=== PATIENT | female | born 2000 | race Caucasian/White ===

== ENCOUNTER 2025-01-08 17:12 | Emergency (ER) | payer SELFPAY ==
[2025-01-08 17:27] VITALS: BP 137/91; PULSE 81; RESP 17; TEMP 36.7; O2SAT 98; BMI 39.9
[2025-01-08 17:27] LABS: Microscopic, Urine URINE MICROSCOPIC (MICROSCOPIC)
[2025-01-08 17:42] LABS: Appearance,Urine CLEAR (Clear); Bilirubin,Urine Negative (Negative); Blood, Urine Negative (Negative); Color,Urine YELLOW (Yellow); Glucose,Urine (UA) Negative (Negative); Ketones,Urine TRACE (Negative); Leukocyte Esterase,Urine Negative (Negative); Nitrate,Urine Negative (Negative); Protein,Urine 2+ (Negative); Urobilinogen,Urine 0.2 EU/dl (0.2)
[2025-01-08 17:44] LABS: Specific Gravity, Urine >= 1.030 (1.005-1.030)
[2025-01-08 17:58] LABS: Bacteria,Urine 2+ /lpf
[2025-01-08 18:00] LABS: Hyaline Casts,Urine Occasional #/lpf (0)
[2025-01-08 18:01] LABS: Basophils % 0.4 % (0.1-2.0); Eosinophils # 0.2 K/mm3 (0.0-0.4); Eosinophils % 1.8 % (0.1-12.0); Hematocrit 43.6 % (37.0-47.0); Hemoglobin 14.4 g/dL (12.2-16.2); Lymphocytes # 2.4 K/mm3 (0.7-4.5); Lymphocytes % 22.4 % (10-50); Mean Corpuscular Volume 84.7 fl (81-99); Mean Platelet Volume 10.7 fl (7.4-10.4); Monocytes # 0.6 K/mm3 (0.1-1.0); Monocytes % 5.9 % (1.7-9.3); Neutrophils # 7.4 K/mm3 (1.8-7.8); Neutrophils % 69.1 % (37.0-80.0); Nucleated Red Blood Cells # 0 10^3/uL; Nucleated Red Blood Cells % 0 %; Platelet Count 261 K/mm3 (142-424); Red Blood Count 5.15 M/mm3 (4.20-5.40); Red Cell Distribution Width-SD 39.9 fL; White Blood Count 10.7 K/mm3 (4.8-10.8)
[2025-01-08 18:07] LABS: Albumin Level 4.5 g/dl (3.5-5.0); Chloride 104 mmol/L (98-107); Sodium 138 mmol/L (136-145)
[2025-01-08 18:09] LABS: Blood Urea Nitrogen 8 mg/dl (7-17); Creatinine Clearance Estimated 209 mL/min (50-200); Estimated Glomerular Filt Rate 125 ml/min (>60); GFR (African American) 151 ML/MIN (>60)
[2025-01-08 18:10] LABS: Alanine Aminotransferase 12 U/L (12-78); Albumin/Globulin Ratio 1.3 (1.1-1.8); Alkaline Phosphatase 92 U/L (38-126); Aspartate Amino Transferase 23 U/L (14-36); Bilirubin,Total 0.6 mg/dl (0.2-1.3); Calcium 9.8 mg/dl (8.4-10.2); Carbon Dioxide 23 mmol/L (22.0-30.0); Globulin 3.5 g/dL (1.3-3.2); Glucose 88 mg/dl (74-100)
[2025-01-08 18:12] LABS: Urine Pregnancy, HCG Qual. Positive (Negative)
--- NOTE | 2025-01-08 18:31 | ED_ITS ---
Discharge Plan Disposition Patient Disposition: Home, Self-Care Condition: Good Prescriptions Prescriptions: New ondansetron 4 mg tablet,disintegrating 4 mg PO Q8H PRN (Reason: nausea and vomiting) 3 Days Qty: 9 0RF Referrals Follow up/Referrals: Arielle Conley DO [Staff Physician] - See instructions Provider,Referral, [Primary Care Provider] - See instructions Activity Restrictions/Add. Instructions Additional Instructions/Restrictions: You were seen for early (9 weeks 6 days). Please start your vitamin. Call for a follow up with the OB. Clinical Impressions Clinical Impression: Nausea and vomiting during Instructions Patient Instructions: Nausea of (Alternative Therapy) Print Language Print Language: Bengali Discharge ED Provider: Blaise Ritchie General Adult HPI <TREVIN Lewis - Last Filed: 01/08/25 21:05> General Chief complaint: Nausea/Vomiting/Diarrhea Stated complaint: N/V,Stomach & bladder pain Time Seen by Provider: 01/08/25 17:17 Mode of Arrival: Ambulatory Source of Information: Patient Description of Symptoms (Recalled from ER Triage Doc. by RN): pt to the ED with multiple complaints. pt reports intermitten nausea and vomiting over the last month as well as fever, body aches and burning when urinating for the last week. pt reports her LMP was about 2 months ago but she hasnt confirmed . History of Present Illness HPI narrative: Patient presents complaining of nausea and vomiting for 2 months. She reports her last menstrual period was 2 months ago as well. She has had 1 positive test followed by a negative test and has not repeated since that time. She reports that she had some urinary symptoms a few days ago resolved with Azo. She reports axillary temperature of 99.5 recently as well. complaint: Vomiting Onset (ago): month(s) Severity: moderate Quality: burning Consistency: intermittent Relieving factors: other (Azo) Exacerbating factors: none Associated symptoms: fever/chills Related Data Previous Rx's ?Medication ?Instructions ?Recorded ondansetron 4 mg disintegrating 4 mg PO Q8H PRN nausea and 01/08/25 tablet vomiting 3 days #9 tabs Allergies Allergy/AdvReac Type Severity Reaction Status Date / Time ceftriaxone (From Rocephin) Allergy Rash Verified 01/08/25 17:37 morphine Allergy Unknown Verified 01/08/25 17:37 allergy reaction Penicillins Allergy Rash Verified 01/08/25 17:37 [facility] <TREVIN Lewis - Last Filed: 01/08/25 21:05> [facility] Disclaimer: The information contained in this section may have been updated after the patient was seen, as this information can be updated by other users. Social History (Updated 01/08/25 @ 21:05 by TREVIN Lewis) Smoking Status: Never smoker alcohol intake: never current occupational status: unemployed Travel in the last 8 weeks: None Have you lived/traveled outside US in past 30 days?: No Contact w/someone who lives/traveled outside US past 30 days?: No Exposure to someone with infectious disease in past 14 days?: No Do you have a fever (greater than 100.4 F or 38 C)?: No Have you tested positive for COVID-19: No Exposed to someone with COVID-19 in past 14 days?: No Do you have a sore throat?: No Do you have a cough?: No Do you have any weakness?: No Do you have any diarrhea?: Yes Are you experiencing any unusual bleeding?: No Do you have any muscle aches/pain?: Yes Do you have any abdominal pain?: Yes Are you experiencing loss of taste or smell?: No <TREVIN Lewis - Last Filed: 01/08/25 21:05> ROS Obtained: Yes Systems reviewed as appropriate & no additional complaints except as documented Physical Exam <TREVIN Lewis - Last Filed: 01/08/25 21:05> General General appearance: alert and in no apparent distress Head Head exam: atraumatic and normocephalic Eye Eye exam: Present normal appearance and EOMI Chest Chest inspection: Present symmetric chest wall rise Respiratory Respiratory exam: Present normal lung sounds bilaterally; Absent wheezes or stridor Cardiovascular Cardiovascular exam: Present regular rate and normal rhythm; Absent systolic murmur Abdominal Exam Abdominal exam: Present soft; Absent distention, tenderness or guarding Extremities Exam Extremities exam: Present full ROM Neurological Exam Neurological exam: Present alert and oriented X3 Psychiatric Psychiatric exam: Present normal affect and normal mood Skin Skin exam: Present warm, dry and intact Medical Decision Making <TREVIN Lewis - Last Filed: 01/08/25 21:05> Medical Records Screening: Per USPSTF and CDC recommendations, given the prevalence of disease in our region, it is our hospital?s policy to screen for HIV and viral Hepatitis for all patients aged 18 and over and those with ongoing risk factors. Mckay Inquiry Pt receiving controlled substance: No Vital Signs: 01/08/25 17:27 01/08/25 21:03 Temperature 98.1 F 98.1 F Temperature Source Oral Oral Pulse Rate 85 Pulse Rate [Left Radial] 81 Respiratory Rate 17 18 Blood Pressure 125/83 Blood Pressure [Right Arm] 137/91 H Blood Pressure Mean [Right Arm] 106 Blood Pressure Source Automatic Cuff Blood Pressure Source [Right Arm] Automatic Cuff Blood Pressure Position [Right Arm] Sitting 02 Sat by Pulse Oximetry 98 Oxygen Delivery Method Room Air Room Air Lab Data Lab Results 01/08/25 17:18: HCG, Quant [id number] H, Urine Color Yellow, Urine Appearance Clear, Urine pH 6.0, Ur Specific [place] >= 1.030, Urine Protein 2+ A, Urine Glucose (UA) Negative, Urine Ketones Trace, Urine Blood Negative, Urine Nitrate Negative, Urine Bilirubin Negative, Urine Urobilinogen 0.2, Ur Leukocyte Esterase Negative, Urine RBC None, Urine WBC 3-5, Ur Squamous Epith Cells 10-20, Urine Bacteria 2+, Hyaline Casts Occasional, Urine HCG, Qual Positive 01/08/25 17:52: WBC 10.7, RBC 5.15, Hgb 14.4, Hct 43.6, MCV 84.7, MCH 28.0, MCHC 33.0, RDW 13.0, Plt Count 261, MPV 10.7 H, Neut % (Auto) 69.1, Lymph % (Auto) 22.4, [place] % (Auto) 5.9, Eos % (Auto) 1.8, Baso % (Auto) 0.4, Neut # (Auto) 7.4, Lymph # (Auto) 2.4, [place] # (Auto) 0.6, Eos # (Auto) 0.2, Baso # (Auto) 0.0, Sodium 138, Potassium 4.0, Chloride 104, Carbon Dioxide 23, Anion Gap 15.0, BUN 8, Creatinine 0.60, Estimated Creat Clear 209, Estimated GFR 125, Est GFR ( Amer) 151, Glucose 88, Calcium 9.8, Total Bilirubin 0.6, AST 23, ALT 12, Alkaline Phosphatase 92, Total Protein 8.0, Albumin 4.5, Globulin 3.5 H, Albumin/Globulin Ratio 1.3, HCV Ab VENKAT w/Rflx PCR Qn Negative, HIV Ag/Ab Combo Qual Negative 01/08/25 17:52 01/08/25 17:52 Orders (Tests/Meds): ORDERS Category Date Time Status POCUS Point of Care (ER Only) Stat Exams 01/08/25 17:59 Taken US transvaginal Stat Exams 01/08/25 19:09 Completed CBC [Complete Blood Count Auto Diff] Stat Lab 01/08/25 17:52 Completed CMP [Comprehensive Metabolic Panel] Stat Lab 01/08/25 17:52 Completed HCG,Quantitative Stat Lab 01/08/25 17:18 Completed HIV Combo Stat Lab 01/08/25 17:52 Completed Hepatitis C Ab Qual. W/ RFX Stat Lab 01/08/25 17:52 Completed UA [Urinalysis and Microscopic] Stat Lab 01/08/25 17:18 Completed Urine , HCG Qual. Stat Lab 01/08/25 17:18 Completed Urine Culture Stat Micro 01/08/25 17:18 Received Medical Decision Narrative: In summary patient is a 24-year-old who presents the emergency department for evaluation of vomiting, amenorrhea. Patient is hemodynamically upon arrival, afebrile. Unremarkable physical exam. Differential diagnosis includes , UTI, viral illness. Initial workup will be conducted with hematologic labs, test, urinalysis. Initial workup reviewed by nv IUMalcolm confirmed on ultrasound, 9 weeks 6 days. She has some bacteria in her urine however also has epithelial cells, pending culture for further evaluation. Upon repeat evaluation patient had acceptable resolution of send. Given this patient is appropriate for discharge home with prescription for Zofran and follow-up with OB.. <Blaise Ritchie MD - Last Filed: 01/08/25 22:15> Vital Signs: 01/08/25 17:27 01/08/25 21:03 Temperature 98.1 F 98.1 F Temperature Source Oral Oral Pulse Rate 85 Pulse Rate [Left Radial] 81 Respiratory Rate 17 18 Blood Pressure 125/83 Blood Pressure [Right Arm] 137/91 H Blood Pressure Mean [Right Arm] 106 Blood Pressure Source Automatic Cuff Blood Pressure Source [Right Arm] Automatic Cuff Blood Pressure Position [Right Arm] Sitting 02 Sat by Pulse Oximetry 98 Oxygen Delivery Method Room Air Room Air Lab Data Lab Results 01/08/25 17:18: HCG, Quant [id number] H, Urine Color Yellow, Urine Appearance Clear, Urine pH 6.0, Ur Specific [place] >= 1.030, Urine Protein 2+ A, Urine Glucose (UA) Negative, Urine Ketones Trace, Urine Blood Negative, Urine Nitrate Negative, Urine Bilirubin Negative, Urine Urobilinogen 0.2, Ur Leukocyte Esterase Negative, Urine RBC None, Urine WBC 3-5, Ur Squamous Epith Cells 10-20, Urine Bacteria 2+, Hyaline Casts Occasional, Urine HCG, Qual Positive 01/08/25 17:52: WBC 10.7, RBC 5.15, Hgb 14.4, Hct 43.6, MCV 84.7, MCH 28.0, MCHC 33.0, RDW 13.0, Plt Count 261, MPV 10.7 H, Neut % (Auto) 69.1, Lymph % (Auto) 22.4, [place] % (Auto) 5.9, Eos % (Auto) 1.8, Baso % (Auto) 0.4, Neut # (Auto) 7.4, Lymph # (Auto) 2.4, [place] # (Auto) 0.6, Eos # (Auto) 0.2, Baso # (Auto) 0.0, Sodium 138, Potassium 4.0, Chloride 104, Carbon Dioxide 23, Anion Gap 15.0, BUN 8, Creatinine 0.60, Estimated Creat Clear 209, Estimated GFR 125, Est GFR ( Amer) 151, Glucose 88, Calcium 9.8, Total Bilirubin 0.6, AST 23, ALT 12, Alkaline Phosphatase 92, Total Protein 8.0, Albumin 4.5, Globulin 3.5 H, Albumin/Globulin Ratio 1.3, HCV Ab VENKAT w/Rflx PCR Qn Negative, HIV Ag/Ab Combo Qual Negative Orders (Tests/Meds): ORDERS Category Date Time Status POCUS Point of Care (ER Only) Stat Exams 01/08/25 17:59 Taken US transvaginal Stat Exams 01/08/25 19:09 Completed CBC [Complete Blood Count Auto Diff] Stat Lab 01/08/25 17:52 Completed CMP [Comprehensive Metabolic Panel] Stat Lab 01/08/25 17:52 Completed HCG,Quantitative Stat Lab 01/08/25 17:18 Completed HIV Combo Stat Lab 01/08/25 17:52 Completed Hepatitis C Ab Qual. W/ RFX Stat Lab 01/08/25 17:52 Completed UA [Urinalysis and Microscopic] Stat Lab 01/08/25 17:18 Completed Urine , HCG Qual. Stat Lab 01/08/25 17:18 Completed Urine Culture Stat Micro 01/08/25 17:18 Received Medical Decision Narrative: In summary patient is a 24-year-old who presents the emergency department for evaluation of vomiting, amenorrhea. Patient is hemodynamically upon arrival, afebrile. Unremarkable physical exam. Differential diagnosis includes , UTI, viral illness. Initial workup will be conducted with hematologic labs, test, urinalysis. Initial workup reviewed by me IUP confirmed on ultrasound, 9 weeks 6 days. She has some bacteria in her urine however also has epithelial cells, pending culture for further evaluation. Upon repeat evaluation patient had acceptable resolution of send. Given this patient is appropriate for discharge home with prescription for Zofran and follow-up with OB.. I was consulted by the ANCELMO, and we discussed the complexity of the problems being addressed. I approved the treatment and management plan for this patient's care in the Emergency Department, thus performing a substantive portion of the medical decision making. Blaise Ritchie MD Procedures <Blaise Ritchie MD - Last Filed: 01/08/25 22:15> Limited Ultrasound Indication:: Limited OB ultrasound Indication: Positive test Identified structures: -Uterus -Left adnexa -Right adnexa -Pouch of Gaurav Findings: Uterus: No definitive IUP Right adnexa: -Normal Left adnexa: -Normal [place] sac: -free fluid absent Impression: -IUP: No definitive IUP -Ectopic : Absent -Free fluid: Absent Images were saved to permanent archive The study was technically adequate CPT Transabdominal: 82159-52 This study was performed by me, and I personally interpreted all images/videos. Based on my clinical judgement, these images were adequate, but did necessitate further imaging Critical Care <TREVIN Lewis - Last Filed: 01/08/25 21:05> Critical Care Time Critical Care Time: No
[2025-01-08 19:05] LABS: HCG,Quantitative 130660 mIU/ml (0-5.42)
--- NOTE | 2025-01-08 19:09 | US_ITS ---
PROCEDURE INFORMATION: Exam: US , Transvaginal and US Duplex Artery and Vein, Ovaries, Complete Exam date and time: 01/08/2025 7:15 PM Age: 24 years old Clinical indication: Lmp or gestational age (in weeks): 9 weeks 6 days; Other: Nausea and voimting; ; Additional info: confirm iup LABS AND CLINICAL REPORTS: Last menstrual period start date: 10/26/2024 TECHNIQUE: Imaging protocol: Real-time transvaginal obstetrical ultrasound of the maternal pelvis and a first trimester with image documentation. Transvaginal imaging was used for better evaluation of the fetus, adnexa, and/or cervix. Real-time duplex ultrasound scan of the arterial and venous flow of the ovaries with B-mode, color Doppler flow and spectral waveform analysis, Complete Duplex. Duplex exam was performed to evaluate for torsion and other vascular conditions. COMPARISON: No relevant prior studies available. FINDINGS: GESTATION: Gestation: Yolk sac measures 6.2 mm. heart rate: 165 bpm Extra-embryonic membranes/Placenta: Not evaluated due to early gestation. Amniotic fluid: Not evaluated due to early gestation. BIOMETRY: Gestational age (AUA): 9 w 6 d Estimated due date (AUA): 08/07/2025 [place] rump length (CRL): 29.59 mm. EGA (CRL) is 9 w 6 d Estimated due date (AUA): 08/07/2025 MATERNAL: Right ovary/adnexa: RIGHT ovary measures 2.1 mL. Left ovary/adnexa: LEFT ovary measures 3.0 mL. Doppler: Doppler examination of the ovaries with pulsed wave and color images was performed which demonstrate arterial/venous waveforms within normal limits. Intraperitoneal space: No free fluid in the pelvis. IMPRESSION: Single LIVE intrauterine gestation. Normal ovaries demonstrating blood flow on Doppler.
--- NOTE | 2025-01-08 19:27 | PC.NURSE ---
rounded on pt at this time. pt voices no needs at this time.
[2025-01-08 19:40] LABS: HIV Combo NEGATIVE (Negative)
[2025-01-08 19:48] LABS: Hepatitis C Ab Qual. W/ RFX NEGATIVE (Negative)
[2025-01-08 21:03] VITALS: BP 125/83; PULSE 85; RESP 18; TEMP 36.7; O2SAT 99
== END 2025-01-08 21:04 | disposition home or self-care (01) ==
PROVIDERS: Physician Assistant; Emergency Provider Emergency Medicine
DX: O21.9 Vomiting of pregnancy, unspecified (principal); R50.9 Fever, unspecified; R30.0 Dysuria; Z3A.09 9 weeks gestation of pregnancy; Z11.59 Encounter for screening for other viral diseases; Z11.4 Encounter for screening for human immunodeficiency virus [HIV]
CPT/HCPCS: 99284; 76830; 80053; 81001; 81025; 84702; 85025; 86803; 87086; 87389

== ENCOUNTER 2025-01-26 19:56 | Emergency (ER) | payer MEDICAID, SELFPAY ==
[2025-01-26 20:00] VITALS: BP 133/91; PULSE 96; RESP 18; TEMP 37.1; O2SAT 98; BMI 41.0
--- NOTE | 2025-01-26 20:07 | HMH.EDGENADL ---
Discharge Plan Disposition Patient Disposition: Home, Self-Care Condition: Good Prescriptions Prescriptions: New ondansetron 4 mg tablet,disintegrating 4 mg PO Q6H PRN (Reason: nausea and vomiting) Qty: 12 0RF No Action ondansetron 4 mg tablet,disintegrating 4 mg PO Q8H PRN (Reason: nausea and vomiting) 3 Days Qty: 9 0RF Referrals Follow up/Referrals: Provider,Referral, MD [Primary Care Provider] - See instructions Activity Restrictions/Add. Instructions Additional Instructions/Restrictions: Stay well-hydrated. Return if fevers or worsening pain. Please follow up with your primary care provider in 2-3 days. Please return to ED if your symptoms worsen, change in location, change in severity, new symptoms develop or if you become concerned for your health. Clinical Impressions Clinical Impression: Nausea and vomiting during Instructions Patient Instructions: DI for Diarrhea and Traveler's Diarrhea -- Adult, DI for Diarrhea and Traveler's Diarrhea -- Child, DI for Nausea -- Adult, DI for Nausea -- Child Print Language Print Language: Ukrainian Discharge ED Provider: Jelani Stone Adult [facility] General Chief complaint: Nausea/Vomiting/Diarrhea Stated complaint: 13 weeks ,vomiting,dizziness Time Seen by Provider: 01/26/25 20:07 Mode of Arrival: Ambulatory Source of Information: Patient Description of Symptoms (Recalled from ER Triage Doc. by RN): Patient presents today 13 weeks with weakness, right side kidney pain, nausea, and vomiting x 24 hours. Patient reports history of kidney stones. First . Related Data Previous Rx's ?Medication ?Instructions ?Recorded ondansetron 4 mg disintegrating 4 mg PO Q8H PRN nausea and 01/08/25 tablet vomiting 3 days #9 tabs ondansetron 4 mg disintegrating 4 mg PO Q6H PRN nausea and 01/26/25 tablet vomiting #12 tabs Allergies Allergy/AdvReac Type Severity Reaction Status Date / Time ceftriaxone (From Rocephin) Allergy Rash Verified 01/08/25 17:37 morphine Allergy Unknown Verified 01/08/25 17:37 allergy reaction Penicillins Allergy Rash Verified 01/08/25 17:37 PFS PFS Disclaimer: The information contained in this section may have been updated after the patient was seen, as this information can be updated by other users. Social History (Updated 04/13/25 @ 21:05 by TREVIN Lewis) Smoking Status: Never smoker alcohol intake: never current occupational status: unemployed Travel in the last 8 weeks?: None Have you lived/traveled outside US in past 30 days?: No Contact w/someone who lives/traveled outside US past 30 days?: No Exposure to someone with infectious disease in past 14 days?: No Do you have a fever (greater than 100.4 F or 38 C)?: No Have you tested positive for COVID-19?: No Exposed to someone with COVID-19 in past 14 days?: No Do you have a sore throat?: No Do you have a cough?: No Do you have any weakness?: No Do you have any diarrhea?: No Are you experiencing any unusual bleeding?: No Do you have any muscle aches/pain?: No Do you have any abdominal pain?: No Are you experiencing loss of taste or smell?: No ROS Obtained: Yes All systems reviewed & no additional complaints except as documented Physical Exam General General appearance: alert and in no apparent distress Respiratory Respiratory exam: Present normal lung sounds bilaterally; Absent respiratory distress Cardiovascular Cardiovascular exam: Present regular rate and normal rhythm Abdominal Exam Abdominal exam: Present soft and tenderness (mild suprapubic and llq and l flank); Absent distention Neurological Exam Neurological exam: Present alert and oriented X3 Medical Decision Making Medical Records Screening: Per USPSTF and CDC recommendations, given the prevalence of disease in our region, it is our hospital?s policy to screen for HIV and viral Hepatitis for all patients aged 18 and over and those with ongoing risk factors. Mckay Inquiry Pt receiving controlled substance: No Vital Signs: 01/26/25 20:00 01/26/25 21:31 01/26/25 22:11 Temperature 98.7 F 97.9 F Temperature Source Tympanic Temporal Artery Scan Pulse Rate 89 95 H Pulse Rate [Right] 96 H Respiratory Rate 18 18 Blood Pressure 135/79 151/98 H Blood Pressure [Right Arm] 133/91 H Blood Pressure Mean [Right Arm] 105 Blood Pressure Source [Right Arm] Automatic Cuff Blood Pressure Position [Right Arm] Sitting 02 Sat by Pulse Oximetry 98 100 Oxygen Delivery Method Room Air Room Air Lab Data Lab Results 01/26/25 20:15: WBC 14.5 H, RBC 5.01, Hgb 14.3, Hct 42.8, MCV 85.4, MCH 28.5, MCHC 33.4, RDW 13.4, Plt Count 268, MPV 10.3, Neut % (Auto) 75.5, Lymph % (Auto) 17.3, [place] % (Auto) 4.1, Eos % (Auto) 2.5, Baso % (Auto) 0.3, Neut # (Auto) 11.0 H, Lymph # (Auto) 2.5, [place] # (Auto) 0.6, Eos # (Auto) 0.4, Baso # (Auto) 0.1, Sodium 137, Potassium 4.0, Chloride 106, Carbon Dioxide 24, Anion Gap 11.0, BUN 5 L, Creatinine 0.60, Estimated Creat Clear 214, Estimated GFR 125, Est GFR ( Amer) 151, Glucose 92, Calcium 10.0, Magnesium 1.6, Total Bilirubin 0.3, AST 21, ALT 11 L, Alkaline Phosphatase 82, Total Protein 7.3, Albumin 4.4, Globulin 2.9, Albumin/Globulin Ratio 1.5, Lipase 68, HCG, Quant [id number] H, Urine Color Yellow, Urine Appearance Cloudy, Urine pH 6.5, Ur Specific [place] 1.025, Urine Protein Negative, Urine Glucose (UA) Negative, Urine Ketones Trace, Urine Blood Negative, Urine Nitrate Negative, Urine Bilirubin Negative, Urine Urobilinogen 0.2, Ur Leukocyte Esterase Negative, Urine RBC 3-5, Urine WBC 5-10, Ur Squamous Epith Cells 10-20, Amorphous Sediment 3+ 01/26/25 20:15 01/26/25 20:15 Orders (Tests/Meds): ED MEDICATIONS Discontinued Medications Generic Name Dose Route Start Last Admin Trade Name Carlosq PRN Reason Stop Dose Admin Lactated Ringer's 1,000 mls @ 999 mls/hr 01/26/25 20:19 01/26/25 20:25 Lactated Ringer's 1000 Ml Bag IV 01/26/25 21:19 999 mls/hr .Q1H1M ONE Administration Ondansetron HCl 4 mg 01/26/25 20:19 01/26/25 20:25 Ondansetron 4mg/2ml Vial IV 01/26/25 20:20 4 mg ONCE ONE Administration ORDERS Category Date Time Status POCUS Point of Care (ER Only) Stat Exams 01/26/25 20:19 Taken CBC w/Auto Diff [Complete Blood Count Auto Diff] Stat Lab 01/26/25 20:15 Completed CMP [Comprehensive Metabolic Panel] Stat Lab 01/26/25 20:15 Completed HCG,Quantitative Stat Lab 01/26/25 20:15 Completed Lipase Stat Lab 01/26/25 20:15 Completed MAG [Magnesium] Stat Lab 01/26/25 20:15 Completed Urinalysis and Microscopic Stat Lab 01/26/25 20:15 Completed Urine Culture Stat Micro 01/26/25 20:15 Received Medical Decision Narrative: Patient is a 24-year-old female with history of anxiety, depression. She is a G1 that is currently 13 weeks by last menstrual period. She has not had an ultrasound dating yet per her. She presents today due to concerns for nausea, vomiting, slight shortness of breath as well as right flank pain. She reports that the shortness of breath is only on exertion and has been present for some time. The nausea and vomiting has been throughout the , but got worse yesterday. She has not been able to keep anything down. She reports she ran out of her Zofran several weeks ago. She denies any dysuria or hematuria but does have some right flank pain. Endorses subjective fevers without objective ones. Denies any diarrhea, significant abdominal pain anteriorly. No history of blood clots and no lower extremity edema. She has had no vaginal bleeding. No vaginal discharge. In summary, this 24-year-old female presents to the emergency department today with vomiting. On initial evaluation patient is afebrile, hemodynamically stable and in no acute distress. On exam, appears somewhat dry, with 2-second capillary refill, abdomen soft nontender nondistended some right flank tenderness. She does have a history of kidney stones, will screen with [id number] ultrasound of the right renal and urinalysis. Also obtain basic hematologic labs to rule out significant electrolyte derangement or INES.. Differential diagnosis includes but is not limited to gastritis, gastroenteritis, hyperemesis gravidarum, electrolyte disturbance, INES, ectopic , renal stone. Patient received Zofran, fluid bolus for treatment. Labs personally reviewed demonstrate mild leukocytosis, favored to be reactive from the vomiting. No significant electrolyte derangement, hCG 78,000. No evidence of UTI. No asymptomatic bacteriuria.. On reassessment patient reports improvement in her symptoms. She has returned to her baseline. She is tolerating good oral intake in the emergency department and reports complete resolution in her symptoms. She will be given Zofran outpatient for hyperemesis gravidarum and strict return precautions. IUP with good heart rate visualized on my bedside ultrasound.. I also looked at her right kidney given that she was having some right flank pain that is now resolved after Tylenol here, I did not appreciate any hydronephrosis. This in conjunction with no blood in her urinalysis makes kidney stone unlikely. 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 Of note, social determinants of health include poor health literacy. At this time it was felt that the patient was safe to be discharged home. The patient was in agreement with this plan. The patient was given strict return precautions prior to being discharged from the emergency department. Limited OB ultrasound Indication: -Pelvic or abdominal pain Identified structures: Uterus Findings: IUP with FHR 164 Uterus: [Definitive IUP FHR: 164 Impression: -IUP: Present Images [were saved to permanent archive The study [was technically adequate CPT Transabdominal: 39894-08 This study was performed by me, and I personally interpreted all images/videos. Based on my clinical judgement, these images were [adequate/inadequate and did/did not necessitate further imaging. Critical Care Critical Care Time Critical Care Time: No
[2025-01-26 20:22] LABS: Microscopic, Urine URINE MICROSCOPIC (MICROSCOPIC)
[2025-01-26 20:24] LABS: Basophils # 0.1 K/mm3 (0-0.2); Basophils % 0.3 % (0.1-2.0); Bilirubin,Urine Negative (Negative); Blood, Urine Negative (Negative); Color,Urine YELLOW (Yellow); Eosinophils # 0.4 Kmm3 (0.0-0.4); Eosinophils % 2.5 % (0.1-12.0); Glucose,Urine (UA) Negative (Negative); Hematocrit 42.8 % (37.0-47.0); Hemoglobin 14.3 g/dL (12.2-16.2); Ketones,Urine TRACE (Negative); Leukocyte Esterase,Urine Negative (Negative); Lymphocytes # 2.5 K/mm3 (0.7-4.5); Lymphocytes % 17.3 % (10-50); Mean Corpuscular HGB Conc 33.4 g/dL (31.8-35.4); Mean Corpuscular Hemoglobin 28.5 pg (27.0-31.2); Mean Corpuscular Volume 85.4 fl (81-99); Mean Platelet Volume 10.3 fl (7.4-10.4); Monocytes # 0.6 K/mm3 (0.1-1.0); Monocytes % 4.1 % (1.7-9.3); Neutrophils % 75.5 % (37.0-80.0); Nitrate,Urine Negative (Negative); Nucleated Red Blood Cells # 0 10^3/uL; Nucleated Red Blood Cells % 0 %; PH,Urine 6.5 (5.0-8.5); Platelet Count 268 K/mm3 (142-424); Protein,Urine Negative (Negative); Red Blood Count 5.01 M/mm3 (4.20-5.40); Red Cell Distribution Width 13.4 % (11.5-17.5); Red Cell Distribution Width-SD 41.3 fL; Specific Gravity, Urine 1.025 (1.005-1.030); Urobilinogen,Urine 0.2 EU/dl (0.2); White Blood Count 14.5 K/mm3 (4.8-10.8)
[2025-01-26] MEDS: LACTATED RINGERS 1000ML 1,000 ML 999 ML IV (20:25)
[2025-01-26] MEDS: ONDANSETRON 4MG/2ML VIAL 4 MG IV (20:25)
[2025-01-26 20:31] LABS: Appearance,Urine Cloudy (Clear)
[2025-01-26 20:33] LABS: Albumin Level 4.4 g/dl (3.5-5.0); Chloride 106 mmol/L (98-107); Sodium 137 mmol/L (136-145)
[2025-01-26 20:36] LABS: Alanine Aminotransferase 11 U/L (12-78); Albumin/Globulin Ratio 1.5 (1.1-1.8); Alkaline Phosphatase 82 U/L (38-126); Aspartate Amino Transferase 21 U/L (14-36); Bilirubin,Total 0.3 mg/dl (0.2-1.3); Blood Urea Nitrogen 5 mg/dl (7-17); Carbon Dioxide 24 mmol/L (22.0-30.0); Creatinine Clearance Estimated 214 mL/min (50-200); Estimated Glomerular Filt Rate 125 ml/min (>60); GFR (African American) 151 ML/MIN (>60); Globulin 2.9 g/dL (1.3-3.2); Glucose 92 mg/dl (74-100); Lipase 68 U/L (23-300); Total Protein,Serum 7.3 g/dl (6.3-8.2)
[2025-01-26 20:37] LABS: Magnesium 1.6 mg/dl (1.6-2.3)
[2025-01-26 20:40] LABS: Amorphous Sediment,Urine 3+ /lpf
[2025-01-26 21:31] VITALS: BP 135/79; PULSE 89; O2SAT 100
[2025-01-26 21:41] LABS: HCG,Quantitative 78731 mIU/ml (0-5.42)
[2025-01-26 22:11] VITALS: BP 151/98; PULSE 95; RESP 18; TEMP 36.6; O2SAT 95
== END 2025-01-26 22:18 | disposition home or self-care (01) ==
PROVIDERS: Emergency Provider Emergency Medicine
DX: O21.9 Vomiting of pregnancy, unspecified (principal); R10.817 Generalized abdominal tenderness; R53.1 Weakness; Z3A.13 13 weeks gestation of pregnancy
CPT/HCPCS: 80053; 81001; 83690; 83735; 84702; 85025; 87086; 96361; 96374; 99284; J2405; J7120

== ENCOUNTER 2025-02-10 18:21 | Emergency (ER) | payer MEDICAID, SELFPAY ==
[2025-02-10 18:37] VITALS: BP 122/83; PULSE 121; RESP 18; TEMP 36.6; O2SAT 97; BMI 41.3
--- NOTE | 2025-02-10 18:59 | HMH.EDGENADL ---
Discharge Plan Disposition Patient Disposition: Home, Self-Care Condition: Good Prescriptions Prescriptions: New ondansetron 4 mg tablet,disintegrating 4 mg PO Q8H PRN (Reason: nausea and vomiting) 4 Days Qty: 12 0RF nitrofurantoin monohyd/m-cryst [Macrobid] 100 mg capsule 100 mg PO BID 5 Days Qty: 10 0RF Rx Instructions: must administer with a meal/food No Action ondansetron 4 mg tablet,disintegrating 4 mg PO Q8H PRN (Reason: nausea and vomiting) 3 Days Qty: 9 0RF ondansetron 4 mg tablet,disintegrating 4 mg PO Q6H PRN (Reason: nausea and vomiting) Qty: 12 0RF Referrals Follow up/Referrals: Provider,Referral, MD [Primary Care Provider] - See instructions Activity Restrictions/Add. Instructions Additional Instructions/Restrictions: You were evaluated in the emergency department today. 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 Follow-up closely with your primary care provider as well as with your OB. Make sure you stay hydrated. You may take Tylenol every 4-6 hours as needed for pain as well. Return to the emergency department for new or worsening symptoms Clinical Impressions Clinical Impression: Urinary tract infection during Stand Alone Forms Stand Alone Forms: Work/School Release Instructions Patient Instructions: DI for Urinary Tract Infection (UTI), DI for -- Discomforts and Remedies, DI for Abdominal Pain -- Early Print Language Print Language: Guamanian Discharge ED Provider: Sana Kiran General Adult HPI <TREVIN Albrecht - Last Filed: 02/10/25 22:09> General Chief complaint: Abdominal Pain Stated complaint: 14-15 weeks ,vomiting,dizziness Time Seen by Provider: 02/10/25 18:37 Mode of Arrival: Ambulatory Source of Information: Patient Description of Symptoms (Recalled from ER Triage Doc. by RN): Patient reports that she is approx 14-15 weeks and began to have cramping, vomiting, and dizziness. States her OBGYN at [facility] gave her Famotidine for her nausea and that it is not helping. States she has asked her OBGYN multiple times for Zofran and that they are not listening to her. History of Present Illness HPI narrative: 24-year-old G1, female at approximately 14 to 15 weeks gestation presents to the emergency department for abdominal cramping that is localized to the lower abdomen that is started today, nausea and vomiting and generalized weakness, patient has had documented IUP 1 month ago, had uncomplicated thus far except for hyperemesis gravidarum for which she was seen and treated for multiple times in the emergency department. Patient denies any other real relevant past medical history except for prior appendectomy, takes no other medications at home, denies any fever chills chest pain shortness of breath, denies any constipation diarrhea no urinary toxin otology, no vaginal discharge no vaginal bleeding, triage vitals noted for tachycardia, however patient states that she is quite anxious . Onset (ago): hour(s) Related Data Previous Rx's ?Medication ?Instructions ?Recorded ondansetron 4 mg disintegrating 4 mg PO Q8H PRN nausea and 01/08/25 tablet vomiting 3 days #9 tabs ondansetron 4 mg disintegrating 4 mg PO Q6H PRN nausea and 01/26/25 tablet vomiting #12 tabs nitrofurantoin 100 mg PO BID 5 days #10 caps 02/10/25 monohydrate/macrocrystals 100 mg capsule (Macrobid) ondansetron 4 mg disintegrating 4 mg PO Q8H PRN nausea and 02/10/25 tablet vomiting 4 days #12 tabs Allergies Allergy/AdvReac Type Severity Reaction Status Date / Time ceftriaxone (From Rocephin) Allergy Rash Verified 01/08/25 17:37 morphine Allergy Unknown Verified 01/08/25 17:37 allergy reaction Penicillins Allergy Rash Verified 01/08/25 17:37 [facility] <TREVIN Albrecht - Last Filed: 02/10/25 22:09> [facility] Disclaimer: The information contained in this section may have been updated after the patient was seen, as this information can be updated by other users. Social History (Updated 01/08/25 @ 21:05 by TREVIN Lewis) Smoking Status: Never smoker alcohol intake: never current occupational status: unemployed Travel in the last 8 weeks?: None Have you lived/traveled outside [place] in past 30 days?: No Contact w/someone who lives/traveled outside US past 30 days?: No Exposure to someone with infectious disease in past 14 days?: No Do you have a fever (greater than 100.4 F or 38 C)?: No Have you tested positive for COVID-19?: No Exposed to someone with COVID-19 in past 14 days?: No Do you have a sore throat?: No Do you have a cough?: No Do you have any weakness?: No Do you have any diarrhea?: No Are you experiencing any unusual bleeding?: No Do you have any muscle aches/pain?: No Do you have any abdominal pain?: No Are you experiencing loss of taste or smell?: No <TREVIN Albrecht - Last Filed: 02/10/25 22:09> ROS Obtained: Yes All systems reviewed & no additional complaints except as documented Physical Exam <TREVIN Albrecht - Last Filed: 02/10/25 22:09> General General appearance: alert and in no apparent distress Head Head exam: atraumatic and normocephalic Eye Eye exam: Present PERRL and EOMI ENT ENT exam: Present mucous membranes moist Neck Neck exam: Present normal inspection Chest Chest inspection: Present normal inspection and symmetric chest wall rise Respiratory Respiratory exam: Present normal lung sounds bilaterally; Absent respiratory distress Cardiovascular Cardiovascular exam: Present regular rate and normal rhythm Abdominal Exam Abdominal exam: Present soft; Absent tenderness, guarding, rebound or rigidity Comment: Obvious abdomen. Extremities Exam Extremities exam: Present normal inspection Neurological Exam Neurological exam: Present alert and oriented X3 Psychiatric Psychiatric exam: Present normal affect Skin Skin exam: Present warm and dry Medical Decision Making <TREVIN Albrecht - Last Filed: 02/10/25 22:09> Medical Records Medical records reviewed: Yes I reviewed the patient's medical records. Screening: Per USPSTF and CDC recommendations, given the prevalence of disease in our region, it is our hospital?s policy to screen for HIV and viral Hepatitis for all patients aged 18 and over and those with ongoing risk factors. Mckay Inquiry Pt receiving controlled substance: No Mckay was queried for this patient: No Vital Signs: 02/10/25 18:37 02/10/25 20:52 02/10/25 21:00 Temperature 97.9 F Temperature Source Oral Pulse Rate 104 H 106 H Pulse Rate [Radial] 121 H Respiratory Rate 18 16 Blood Pressure 117/78 120/80 Blood Pressure [Right Arm] 122/83 Blood Pressure Mean Blood Pressure Mean [Right Arm] 96 Blood Pressure Source Blood Pressure Source [Right Arm] Automatic Cuff Blood Pressure Position Blood Pressure Position [Right Arm] Sitting 02 Sat by Pulse Oximetry 97 96 95 Oxygen Delivery Method Room Air 02/10/25 22:12 02/10/25 22:55 Temperature 98 F Temperature Source Pulse Rate 100 H 89 Pulse Rate [Radial] Respiratory Rate 20 22 Blood Pressure 127/78 118/78 Blood Pressure [Right Arm] Blood Pressure Mean 88 Blood Pressure Mean [Right Arm] Blood Pressure Source Automatic Cuff Blood Pressure Source [Right Arm] Blood Pressure Position Sitting Blood Pressure Position [Right Arm] 02 Sat by Pulse Oximetry 96 Oxygen Delivery Method Room Air Room Air Lab Data Lab Results 02/10/25 19:52: WBC 14.4 H, RBC 4.93, Hgb 14.1, Hct 41.7, MCV 84.6, MCH 28.6, MCHC 33.8, RDW 13.5, Plt Count 251, MPV 10.5 H, Neut % (Auto) 77.6, Lymph % (Auto) 15.7, Becker % (Auto) 4.0, Eos % (Auto) 2.2, Baso % (Auto) 0.2, Neut # (Auto) 11.2 H, Lymph # (Auto) 2.3, Becker # (Auto) 0.6, Eos # (Auto) 0.3, Baso # (Auto) 0.0, PT 11.2, INR 1.01, Sodium 137, Potassium 3.9, Chloride 108 H, Carbon Dioxide 23, Anion Gap 9.9, BUN 7, Creatinine 0.60, Estimated Creat Clear 100, Estimated GFR 125, Est GFR ( Amer) 151, Glucose 108 H, Calcium 9.9, Total Bilirubin 0.4, AST 25, ALT 13, Alkaline Phosphatase 86, Total Protein 7.1, Albumin 4.1, Globulin 3.0, Albumin/Globulin Ratio 1.4, Lipase 78, HCG, Quant [id number] H 02/10/25 21:47: Urine Color Yellow, Urine Appearance Clear, Urine pH 6.0, Ur Specific [place] 1.025, Urine Protein Trace, Urine Glucose (UA) Negative, Urine Ketones 2+, Urine Blood Negative, Urine Nitrate Negative, Urine Bilirubin Negative, Urine Urobilinogen 0.2, Ur Leukocyte Esterase Negative, Urine RBC Occasional, Urine WBC Occasional, Ur Squamous Epith Cells 3-5, Urine Bacteria 1+, Urine Mucus 4+ 02/10/25 19:52 02/10/25 19:52 Orders (Tests/Meds): ED MEDICATIONS Discontinued Medications Generic Name Dose Route Start Last Admin Trade Name Jihan PRN Reason Stop Dose Admin Acetaminophen 500 mg 02/10/25 19:23 02/10/25 19:55 Acetaminophen 500mg Tab PO 02/10/25 19:24 500 mg ONCE ONE Administration Nitrofurantoin Macrocrystals 100 mg 02/10/25 22:44 02/10/25 22:50 Nitrofurantoin 100mg Capsule PO 02/10/25 22:45 100 mg ONCE ONE Administration Ondansetron HCl 4 mg 02/10/25 19:23 02/10/25 19:54 Ondansetron 4mg Odt SL 02/10/25 19:24 4 mg ONCE ONE Administration ORDERS Category Date Time Status Complete Blood Count Auto Diff Stat Lab 02/10/25 19:52 Completed Comprehensive Metabolic Panel Stat Lab 02/10/25 19:52 Completed HCG,Quantitative Stat Lab 02/10/25 19:52 Completed Lipase Stat Lab 02/10/25 19:52 Completed PT INR [Prothrombin Time INR] Stat Lab 02/10/25 19:52 Completed Urinalysis and Microscopic Stat Lab 02/10/25 21:47 Completed Medical Decision Narrative: 24-year-old A0 14 to 15 weeks gestation female presents emergency department with nausea vomiting abdominal cramping, see HPI for detail past medical history, differential diagnosis include but not limited to hypertensive gravidarum, acute UTI, acute pyelonephritis, round ligament pain, psychogenic nausea and vomiting, physiologic among others. Will obtain basic laboratory studies, hCG quant, heart tones, lipase PT/INR, urinalysis, 500 mg Tylenol, 4 mg p.o. Zofran sublingual for pain and nausea. CBC is noted for mild leukocytosis of 14.4, otherwise unremarkable. PT/INR within normal limits. CMP unremarkable Patient's hCG is 54,116. Discussed the patient's case with attending physician Dr. Kiran at shift change, patient's disposition is pending urinalysis most likely discharge home to self-care. <Sana Kiran, DO - Last Filed: 02/10/25 23:14> Vital Signs: 02/10/25 18:37 02/10/25 20:52 02/10/25 21:00 Temperature 97.9 F Temperature Source Oral Pulse Rate 104 H 106 H Pulse Rate [Radial] 121 H Respiratory Rate 18 16 Blood Pressure 117/78 120/80 Blood Pressure [Right Arm] 122/83 Blood Pressure Mean Blood Pressure Mean [Right Arm] 96 Blood Pressure Source Blood Pressure Source [Right Arm] Automatic Cuff Blood Pressure Position Blood Pressure Position [Right Arm] Sitting 02 Sat by Pulse Oximetry 97 96 95 Oxygen Delivery Method Room Air 02/10/25 22:12 02/10/25 22:55 Temperature 98 F Temperature Source Pulse Rate 100 H 89 Pulse Rate [Radial] Respiratory Rate 20 22 Blood Pressure 127/78 118/78 Blood Pressure [Right Arm] Blood Pressure Mean 88 Blood Pressure Mean [Right Arm] Blood Pressure Source Automatic Cuff Blood Pressure Source [Right Arm] Blood Pressure Position Sitting Blood Pressure Position [Right Arm] 02 Sat by Pulse Oximetry 96 Oxygen Delivery Method Room Air Room Air Lab Data Lab Results 02/10/25 19:52: WBC 14.4 H, RBC 4.93, Hgb 14.1, Hct 41.7, MCV 84.6, MCH 28.6, MCHC 33.8, RDW 13.5, Plt Count 251, MPV 10.5 H, Neut % (Auto) 77.6, Lymph % (Auto) 15.7, Becker % (Auto) 4.0, Eos % (Auto) 2.2, Baso % (Auto) 0.2, Neut # (Auto) 11.2 H, Lymph # (Auto) 2.3, Becker # (Auto) 0.6, Eos # (Auto) 0.3, Baso # (Auto) 0.0, PT 11.2, INR 1.01, Sodium 137, Potassium 3.9, Chloride 108 H, Carbon Dioxide 23, Anion Gap 9.9, BUN 7, Creatinine 0.60, Estimated Creat Clear 100, Estimated GFR 125, Est GFR ( Amer) 151, Glucose 108 H, Calcium 9.9, Total Bilirubin 0.4, AST 25, ALT 13, Alkaline Phosphatase 86, Total Protein 7.1, Albumin 4.1, Globulin 3.0, Albumin/Globulin Ratio 1.4, Lipase 78, HCG, Quant [id number] H 02/10/25 21:47: Urine Color Yellow, Urine Appearance Clear, Urine pH 6.0, Ur Specific [place] 1.025, Urine Protein Trace, Urine Glucose (UA) Negative, Urine Ketones 2+, Urine Blood Negative, Urine Nitrate Negative, Urine Bilirubin Negative, Urine Urobilinogen 0.2, Ur Leukocyte Esterase Negative, Urine RBC Occasional, Urine WBC Occasional, Ur Squamous Epith Cells 3-5, Urine Bacteria 1+, Urine Mucus 4+ Orders (Tests/Meds): ED MEDICATIONS Discontinued Medications Generic Name Dose Route Start Last Admin Trade Name Jihan PRN Reason Stop Dose Admin Acetaminophen 500 mg 02/10/25 19:23 02/10/25 19:55 Acetaminophen 500mg Tab PO 02/10/25 19:24 500 mg ONCE ONE Administration Nitrofurantoin Macrocrystals 100 mg 02/10/25 22:44 02/10/25 22:50 Nitrofurantoin 100mg Capsule PO 02/10/25 22:45 100 mg ONCE ONE Administration Ondansetron HCl 4 mg 02/10/25 19:23 02/10/25 19:54 Ondansetron 4mg Odt SL 02/10/25 19:24 4 mg ONCE ONE Administration ORDERS Category Date Time Status Complete Blood Count Auto Diff Stat Lab 02/10/25 19:52 Completed Comprehensive Metabolic Panel Stat Lab 02/10/25 19:52 Completed HCG,Quantitative Stat Lab 02/10/25 19:52 Completed Lipase Stat Lab 02/10/25 19:52 Completed PT INR [Prothrombin Time INR] Stat Lab 02/10/25 19:52 Completed Urinalysis and Microscopic Stat Lab 02/10/25 21:47 Completed Medical Decision Narrative: 24-year-old A0 14 to 15 weeks gestation female presents emergency department with nausea vomiting abdominal cramping, see HPI for detail past medical history, differential diagnosis include but not limited to hypertensive gravidarum, acute UTI, acute pyelonephritis, round ligament pain, psychogenic nausea and vomiting, physiologic among others. Will obtain basic laboratory studies, hCG quant, heart tones, lipase PT/INR, urinalysis, 500 mg Tylenol, 4 mg p.o. Zofran sublingual for pain and nausea. CBC is noted for mild leukocytosis of 14.4, otherwise unremarkable. PT/INR within normal limits. CMP unremarkable Patient's hCG is 54,116. Discussed the patient's case with attending physician Dr. Kiran at shift change, patient's disposition is pending urinalysis most likely discharge home to self-care. Magno, DO: I was consulted by the ANCELMO, and we discussed the complexity of the problems being addressed. I approved the treatment and management plan for this patient's care in the emergency department, thus performing a substantive portion of the medical decision making. Urinalysis demonstrates bacteria in the setting of . Patient has mild leukocytosis. She has allergies to all penicillins and cephalosporins, so we will treat her with Macrobid. She also was refilled her Zofran, which she states she has been relying on this . She was discharged with strict return precautions and instructions for close follow-up with OB. Sana Kiran DO Critical Care <TREVIN Albrecht - Last Filed: 02/10/25 22:09> Critical Care Time Critical Care Time: No
[2025-02-10] MEDS: ONDANSETRON 4MG ODT 4 MG SL (19:54)
[2025-02-10] MEDS: ACETAMINOPHEN 500MG TAB 500 MG PO (19:55)
[2025-02-10 19:59] LABS: Basophils % 0.2 % (0.1-2.0); Eosinophils # 0.3 Kmm3 (0.0-0.4); Eosinophils % 2.2 % (0.1-12.0); Hematocrit 41.7 % (37.0-47.0); Hemoglobin 14.1 g/dL (12.2-16.2); Immature Granulocytes # 0.05 10^3uL; Immature Granulocytes % 0.3 %; Lymphocytes # 2.3 K/mm3 (0.7-4.5); Lymphocytes % 15.7 % (10-50); Mean Corpuscular HGB Conc 33.8 g/dL (31.8-35.4); Mean Corpuscular Hemoglobin 28.6 pg (27.0-31.2); Mean Corpuscular Volume 84.6 fl (81-99); Mean Platelet Volume 10.5 fl (7.4-10.4); Monocytes # 0.6 K/mm3 (0.1-1.0); Neutrophils # 11.2 K/mm3 (1.8-7.8); Neutrophils % 77.6 % (37.0-80.0); Nucleated Red Blood Cells # 0 10^3/uL; Nucleated Red Blood Cells % 0 %; Platelet Count 251 K/mm3 (142-424); Red Blood Count 4.93 M/mm3 (4.20-5.40); Red Cell Distribution Width 13.5 % (11.5-17.5); Red Cell Distribution Width-SD 41.2 fL; White Blood Count 14.4 K/mm3 (4.8-10.8)
[2025-02-10 20:08] LABS: Albumin Level 4.1 g/dl (3.5-5.0); Chloride 108 mmol/L (98-107); INR 1.01 (0.9-1.1); Potassium 3.9 mmoL/L (3.5-5.1); Prothrombin Time 11.2 seconds (10.1-12.5); Sodium 137 mmol/L (136-145)
[2025-02-10 20:11] LABS: Alanine Aminotransferase 13 U/L (12-78); Albumin/Globulin Ratio 1.4 (1.1-1.8); Alkaline Phosphatase 86 U/L (38-126); Anion Gap 9.9 mEq/L (5-15); Aspartate Amino Transferase 25 U/L (14-36); Bilirubin,Total 0.4 mg/dl (0.2-1.3); Blood Urea Nitrogen 7 mg/dl (7-17); Carbon Dioxide 23 mmol/L (22.0-30.0); Creatinine Clearance Estimated 100 mL/min (50-200); Estimated Glomerular Filt Rate 125 ml/min (>60); GFR (African American) 151 ML/MIN (>60); Lipase 78 U/L (23-300); Total Protein,Serum 7.1 g/dl (6.3-8.2)
[2025-02-10 20:12] LABS: Calcium 9.9 mg/dl (8.4-10.2); Glucose 108 mg/dl (74-100)
--- NOTE | 2025-02-10 20:23 | PC.NURSE ---
heart tones auscultated. 145-150 bpm
[2025-02-10 20:52] VITALS: BP 117/78; PULSE 104; RESP 16; O2SAT 96
[2025-02-10 21:00] VITALS: BP 120/80; PULSE 106; O2SAT 95
[2025-02-10 21:50] LABS: Microscopic, Urine URINE MICROSCOPIC (MICROSCOPIC)
[2025-02-10 22:00] LABS: Appearance,Urine CLEAR (Clear); Bilirubin,Urine Negative (Negative); Blood, Urine Negative (Negative); Color,Urine YELLOW (Yellow); Glucose,Urine (UA) Negative (Negative); Ketones,Urine 2+ (Negative); Leukocyte Esterase,Urine Negative (Negative); Nitrate,Urine Negative (Negative); Protein,Urine TRACE (Negative); Specific Gravity, Urine 1.025 (1.005-1.030); Urobilinogen,Urine 0.2 EU/dl (0.2)
[2025-02-10 22:01] LABS: HCG,Quantitative 54116 mIU/ml (0-5.42)
[2025-02-10 22:12] VITALS: BP 127/78; PULSE 100; RESP 20; O2SAT 96
[2025-02-10 22:34] LABS: Bacteria,Urine 1+ /lpf; RBC,Urine Occasional #/hpf (0-3); WBC,Urine Occasional #/hpf (0-3)
[2025-02-10 22:35] LABS: Mucus,Urine 4+ /lpf
[2025-02-10] MEDS: NITROFURANTOIN 100MG CAPSULE 100 MG PO (22:50)
[2025-02-10 22:55] VITALS: BP 118/78; PULSE 89; RESP 22; TEMP 36.6; O2SAT 100
== END 2025-02-10 22:59 | disposition home or self-care (01) ==
PROVIDERS: Physician Assistant; Emergency Provider Emergency Medicine
DX: O23.42 Unspecified infection of urinary tract in pregnancy, second trimester (principal); R10.30 Lower abdominal pain, unspecified; O21.9 Vomiting of pregnancy, unspecified; R53.1 Weakness; Z3A.14 14 weeks gestation of pregnancy
CPT/HCPCS: 80053; 81001; 83690; 84702; 85025; 85610; 99284; Q0162